=== PATIENT | female | born 1965 | race Caucasian/White ===

== ENCOUNTER 2022-09-17 11:50 | Inpatient (IN) | payer OTHER ==
[~2022-09-17] VITALS: Ht 157.5 cm; Wt 48.3 kg
[2022-09-17 13:48] LABS: BASOPHILS % (AUTO) 0.5 % (0.0-5.0); EOSINOPHILS % (AUTO) 0.6 % (0.0-8.0); HEMATOCRIT 35.5 % (36-48); LYMPHOCYTES % (AUTO) 23.4 % (21.0-51.0); MEAN CORPUSCULAR HEMOGLOBIN 32.5 pg (27.0-33.0); MEAN CORPUSCULAR HGB CONC 33.5 g/dL (32.0-36.0); MONOCYTES % (AUTO) 4.5 % (3.0-13.0); NEUTROPHILS % (AUTO) 70.7 % (40.0-77.0); PLATELET COUNT (AUTO) 480 K/uL (130-400); RED BLOOD CELL COUNT(AUTO) 3.66 MIL/uL (4.00-5.50); RED CELL DISTRIBUTION WIDTH 16.7 % (11.0-15.5); WHITE BLOOD COUNT (AUTO) 12.9 K/uL (4.8-10.8)
[2022-09-17 13:50] LABS: APPEARANCE,URINE CLOUDY (CLEAR); BILIRUBIN,URINE NEGATIVE (NEGATIVE); COLOR,URINE LIGHT-YELLOW (YELLOW); GLUCOSE, URINE (UA) NEGATIVE (NEGATIVE); KETONES,URINE NEGATIVE (NEGATIVE); LEUKOCYTE ESTERASE ,URINE 500 Leu/uL (NEGATIVE); NITRATE,URINE NEGATIVE (NEGATIVE); OCCULT BLOOD,URINE NEGATIVE (NEGATIVE); PROTEIN,URINE NEGATIVE (NEGATIVE); UROBILINOGEN,URINE 0.2 mg/dL (0.2-1.0)
[2022-09-17 13:59] LABS: POTASSIUM 3.3 mmol/L (3.5-5.1)
[2022-09-17 14:04] LABS: ALBUMIN 3.5 g/dL (3.5-5.0); TOTAL PROTEIN, SERUM 7.4 g/dL (6.0-8.3)
[2022-09-17 14:05] LABS: BACTERIA,URINE FEW /HPF (None Seen); SQUAMOUS EPITHELIAL CELL,UR MANY /HPF (0-2); TRANSITIONAL EPI CELLS,URINE RARE /HPF (None Seen); WBC,URINE 26-50 /HPF (0-1)
[2022-09-17] MEDS ORDERED: ONDANSETRON 4MG INJ IVP ONE (14:30)
[2022-09-17] MEDS ORDERED: MORPHINE 4 MG SYG IVP ONE (14:30)
[2022-09-17] MEDS ORDERED: 0.9%NACL 1000ML 1,000 ML IV ONE (14:30)
[2022-09-17] MEDS ORDERED: PANTOPRAZOLE 40 MG/VIAL IVP ONE (14:30)
[2022-09-17] MEDS ORDERED: MAGNESIUM 2GM PREMIX 50ML 50 ML IV PRN (16:00)
[2022-09-17] MEDS ORDERED: ONDANSETRON 4MG INJ IVP PRN (16:00)
[2022-09-17] MEDS ORDERED: LEVOFLOXACIN 500 MG/D5W 100 ML 100 ML IV SCH (16:00)
[2022-09-17] MEDS ORDERED: HYDROMORPHONE 0.5 MG SYG (0.5MG/0.5ML) ONE (16:17)
[2022-09-17] MEDS ORDERED: LEVOFLOXACIN 500 MG/D5W 100 ML 100 ML ONE (16:17)
[2022-09-17] MEDS: LACTATED RINGERS 1000ML 1,000 ML IV SCH (16:18)
[2022-09-17] MEDS ORDERED: HYDROMORPHONE 0.5 MG SYG (0.5MG/0.5ML) IVP ONE (16:30)
[2022-09-17 17:05] VITALS: BP 160/85
[2022-09-17] MEDS: KETOROLAC 30MG VIAL (30MG/ML) IM PRN (17:57)
[2022-09-17] MEDS: LIDOCAINE HCL-MPF 1% 2ML VIAL IV PRN ×2 (17:57→22:36)
[2022-09-17] MEDS: POTASSIUM CHLORIDE 20MEQ/100ML 100 ML IV PRN ×2 (17:58→22:36)
[2022-09-17] MEDS ORDERED: NICOTINE 21 MG/ 24 HR PATCH TD SCH (18:00)
[2022-09-17] MEDS: FAMOTIDINE 20MG VIAL IV SCH (20:08)
[2022-09-17 20:13] VITALS: BP 137/70
[2022-09-17 22:39] VITALS: BP 154/84
[2022-09-18] MEDS: KETOROLAC 30MG VIAL (30MG/ML) IM PRN ×3 (00:03→08:50)
[2022-09-18 04:01] VITALS: BP 130/77
[2022-09-18] MEDS: LACTATED RINGERS 1000ML 1,000 ML IV SCH (04:28)
[2022-09-18 05:08] LABS: BASOPHILS % (AUTO) 0.4 % (0.0-5.0); EOSINOPHILS % (AUTO) 1.4 % (0.0-8.0); HEMATOCRIT 28.9 % (36-48); LYMPHOCYTES % (AUTO) 23.9 % (21.0-51.0); MEAN CORPUSCULAR HGB CONC 33.2 g/dL (32.0-36.0); MEAN CORPUSCULAR VOLUME 99.3 fL (79-99); MONOCYTES % (AUTO) 4.7 % (3.0-13.0); NEUTROPHILS % (AUTO) 69.2 % (40.0-77.0); PLATELET COUNT (AUTO) 293 K/uL (130-400); RED BLOOD CELL COUNT(AUTO) 2.91 MIL/uL (4.00-5.50); RED CELL DISTRIBUTION WIDTH 16.8 % (11.0-15.5); WHITE BLOOD COUNT (AUTO) 7.8 K/uL (4.8-10.8)
[2022-09-18 05:22] LABS: ALANINE AMINOTRANSFERASE 11 U/L (12-78); ALBUMIN 2.5 g/dL (3.5-5.0); AMYLASE 182 U/L (25-115); ASPARTATE AMINOTRANSFERASE 23 U/L (10-37); CARBON DIOXIDE 31 mmol/L (21-32); CHLORIDE 100 mmol/L (101-111); CHOLESTEROL 119 mg/dL (<200); GLOMERULAR FILTR. RATE CALC 66 mL/min (>90); GLUCOSE,RANDOM 84 mg/dL (70-105); HDL CHOLESTEROL 52 mg/dL (35-85); LDL DIRECT 61 mg/dL (0-99); LIPASE 1592 U/L (114-286); POTASSIUM 3.6 mmol/L (3.5-5.1); SODIUM SERUM 135 mmol/L (136-145); TOTAL PROTEIN, SERUM 5.5 g/dL (6.0-8.3); TRIGLYCERIDES 46 mg/dL (30-200); UREA NITROGEN, BLOOD 8 mg/dL (7-18)
[2022-09-18 05:26] LABS: CRP QUANTITATIVE < 2.00 mg/L (0.00-9.0)
[2022-09-18] MEDS: FAMOTIDINE 20MG VIAL IV SCH (08:50)
[2022-09-18] MEDS ORDERED: ENOXAPARIN SODIUM 40 MG/0.4 ML SYRINGE SQ SCH (09:00)
[2022-09-18] MEDS ORDERED: NICOTINE 21 MG/ 24 HR PATCH TD SCH (09:00)
== END 2022-09-18 10:35 | disposition left against medical advice (07) | DRG 391 ==
LOC: EDH 11:50 → EDHIP 15:44 → 4CH 17:12
PROVIDERS: ADMIT Internal Medicine; ATTEND Internal Medicine
DX: K52.9 Noninfective gastroenteritis and colitis, unspecified (principal); K85.90 Acute pancreatitis without necrosis or infection, unspecified; N39.0 Urinary tract infection, site not specified; K86.1 Other chronic pancreatitis; G89.29 Other chronic pain; M54.9 Dorsalgia, unspecified; E86.0 Dehydration; F17.210 Nicotine dependence, cigarettes, uncomplicated; Z53.29 Procedure and treatment not carried out because of patient's decision for other reasons; Z88.0 Allergy status to penicillin; Z79.899 Other long term (current) drug therapy
CPT/HCPCS: 36415; 80053; 80061; 81001; 82150; 83690; 84145; 85025; 86140; 87088; C9113; G0378; J1170; J1650; J1885; J1956; J2270; J2405; J3480; J3490; J7120